=== PATIENT | male | born 1980 | race Caucasian/White ===

== ENCOUNTER 2017-01-31 10:02 | Emergency (ER) | payer SELFPAY ==
[2017-01-31 10:14] VITALS: TEMP 98.4
--- NOTE | 2017-01-31 10:27 | ED.PDOC ---
History of Present Illness - General Chief Complaint: Syncope/Near Syncope Stated Complaint: dizziness Time Seen by Provider: 01/31/17 10:12 Source: patient, RN notes reviewed, Vital Signs reviewed Exam Limitations: no limitations - History of Present Illness Initial Comments: Patient reports 3 days ago he got up from bed, was walking to get the phone when he got dizzy and fell hitting the L side of his head and face on the corner of the wall. + LOC for ~ 3 minutes. He hit the L side of his head/face anterior to his ear. Since then he has been having intermittent episodes of dizziness. Today in the shower he had a near syncopal episode so he came to get checked out. Denies any other injuries. Timing/Duration: intermittent - for past 3 days Severity: mild Improving Factors: nothing Worsening Factors: movement Associated Symptoms: headaches Allergies/Adverse Reactions: Allergies NO KNOWN ALLERGY Allergy (Verified 01/31/17 10:12) Home Medications: Ambulatory Orders Meclizine HCl [Meclizine 25] 25 mg PO Q8HR PRN #15 tab 01/31/17 Review of Systems - Review of Systems Constitutional: States: no symptoms reported EENTM: States: other - Reports vision in his L eye is just "off", like he is looking through a bubble. Denies: ear pain, nose pain, throat pain, mouth pain Respiratory: States: no symptoms reported Cardiology: States: no symptoms reported Gastrointestinal/Abdominal: States: no symptoms reported Musculoskeletal: States: see HPI, other - Pain along L side of face, jewish to jaw Skin: States: no symptoms reported Neurological: States: see HPI, headache, other - dizziness with near syncope. Denies: numbness, paresthesia, seizure, tingling, tremors, weakness All other Systems: No Change from Baseline Past Medical History (General) - Patient Medical History Hx Stroke: No Hx Asthma: No Hx Cardiac Disorders: No Hx Congestive Heart Failure: No Hx Hypertension: Yes Hx Diabetes: No Surgical History: no surgical history - Vaccination History Hx Tetanus, Diphtheria Vaccination: Yes Hx Influenza Vaccination: No Hx Pneumococcal Vaccination: No - Social History Hx Tobacco Use: No Hx Chewing Tobacco Use: No Hx Alcohol Use: No Hx Substance Use: No Hx Substance Use Treatment: No Hx Depression: Yes Family Medical History - Family History Mother Family History: No Known Physical Exam - Physical Exam General Appearance: Alert, Comfortable, No apparent distress, Well Developed, Well Groomed, Well Hydrated, Well Nourished Eye Exam: bilateral normal Ears, Nose, Throat: hearing grossly normal, normal ENT inspection, normal pharynx, other - Tender along L side of face from mid jewish to jawline, no obvious ernesto deformity Neck: non-tender, full range of motion, supple, normal inspection Respiratory: lungs clear, normal breath sounds, no respiratory distress, no accessory muscle use Cardiovascular/Chest: regular rate, rhythm, no gallop, no JVD, no murmur Back Exam: normal inspection Extremity: normal range of motion, non-tender, normal inspection, no pedal edema 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 Otherwise intact throughout. Skin Exam: normal color, warm/dry Comments: Vital Signs 01/31/17 10:13 Temperature 98.4 F Pulse Rate [ 100 H Right Radial] Respiratory 20 Rate Blood Pressure 158/84 [Right Arm] O2 Sat by Pulse 98 Oximetry Progress - Progress Progress: 01/31/17 11:23 Discussed normal labs and CT scans with patient. Will give a dose of Meclazine 25mg PO. Upon discussion patient reports he has vertigo medication at home from a prior episode ~1 year ago. - Results/Orders Results/Orders: Laboratory Tests 01/31/17 01/31/17 10:30 10:30 WBC 8.9 RBC 5.90 Hgb 16.0 Hct 47.4 MCV 80.3 MCH 27.2 MCHC 33.8 RDW 14.3 Plt Count 273 MPV 8.4 Absolute Neuts (auto) 5.00 Absolute Lymphs (auto) 2.90 Absolute Monos (auto) 0.60 Absolute Eos (auto) 0.20 Absolute Basos (auto) 0.10 Neutrophils % 56.5 Lymphocytes % 33.2 Monocytes % 6.7 Eosinophils % 2.7 Basophils % 0.9 Sodium 136 Potassium 4.0 Chloride 101 Carbon Dioxide 27 Anion Gap 12.0 BUN 12 Creatinine 0.72 BUN/Creatinine Ratio 16.7 Random Glucose 118 H Serum Osmolality 272.8 L Calcium 9.3 Total Bilirubin 0.3 AST 34 ALT 60 Alkaline Phosphatase 56 Serum Total Protein 7.4 Albumin 4.2 Globulin 3.2 Albumin/Globulin Ratio 1.3 - EKG/XRAY/CT CT Ordered: Yes - Head/Orbits: both unremarkable per Radiologist Departure - Departure Clinical Impression: Vertigo, benign positional Qualifiers: Laterality: unspecified laterality Qualified Code(s): H81.10 - Benign paroxysmal vertigo, unspecified ear Closed head injury with concussion Qualifiers: Encounter type: initial encounter Loss of consciousness presence/duration: with LOC of 30 min or less Qualified Code(s): S06.0X1A - Concussion with loss of consciousness of 30 minutes or less, initial encounter Time of Disposition: 12:24 Disposition: Discharge to Home or Self Care Condition: Good Departure Forms: ED Discharge - Pt. Copy, Patient Portal Self Enrollment Instructions: DI for Postconcussion Syndrome, DI for Benign Paroxysmal Positional Vertigo Diet: resume usual diet Activity: increase activity as tolerated Referrals: Portillo Delacruz MD [Primary Care Provider] - 1-5 Days Prescriptions: Meclizine HCl [Meclizine 25] 25 mg PO Q8HR PRN #15 tab PRN Reason: Dizziness Home Medications: Ambulatory Orders Meclizine HCl [Meclizine 25] 25 mg PO Q8HR PRN #15 tab 01/31/17 Additional Instructions: Take medication (Antivert/Meclzine) every 8 hours as needed for dizziness
--- NOTE | 2017-01-31 11:18 | CT ---
EXAM DESCRIPTION: Head CLINICAL HISTORY: 36 years,Male,Fell, hit L side of head and face COMPARISON: May 18, 2013 TECHNIQUE: Multiple axial helical tomographic images were obtained of the head and reconstructed in the sagittal and coronal plane. This exam was performed using radiation doses that are As Low As Reasonably Achievable (ALARA). FINDINGS: There are no abnormal extra-axial fluid collections or mass effect. The rowe-white matter differentiation and sulcation is age appropriate. The ventricles are unremarkable. The included bony calvarium is unremarkable.The paranasal sinuses are unremarkable. The mastoid air cells are unremarkable. IMPRESSION: Unremarkable CT of the head. Electronically signed by: Doyle Green MD 01/31/2017 11:14 AM [facility]
--- NOTE | 2017-01-31 11:18 | CT ---
EXAM DESCRIPTION: Orbits CLINICAL HISTORY: 36 years, Male, Fell, hit L side of head and face COMPARISON: None. TECHNIQUE: This exam was performed using radiation doses that are As Low As Reasonably Achievable (ALARA). Multiple axial helical tomography images obtained of the orbits and most of the face. Retractor sagittal coronal plane. FINDINGS: No fracture seen in the face or orbits. Most of the mandible is included but not all and is unremarkable.. Down to C3 is also seen appears unremarkable. Paranasal sinuses and mastoid air cells are unremarkable. Nonspecific subcentimeter lymph nodes seen in both anterior cervical chains of the upper neck. IMPRESSION: Unremarkable CT of the orbits Electronically signed by: Doyle Green MD 01/31/2017 11:17 AM [facility]
[2017-01-31] MEDS ORDERED: MECLIZINE HCL 12.5 MG TAB PO ONE (11:21)
[2017-01-31 12:35] VITALS: BP 117/78; O2SAT 96
== END 2017-01-31 12:25 | disposition home or self-care (01) ==
LOC: ER 10:02
DX: S06.0X1A Concussion with loss of consciousness of 30 minutes or less, initial encounter (principal); H81.10 Benign paroxysmal vertigo, unspecified ear; I10 Essential (primary) hypertension; W19.XXXA Unspecified fall, initial encounter; Y92.9 Unspecified place or not applicable